=== PATIENT | female | born 1965 | race Caucasian/White ===

== ENCOUNTER 2017-03-11 09:11 | Outpatient (CLI) | payer MEDICAID ==
--- NOTE | 2017-03-11 10:17 | Ultrasound Report ---
LIMITED PELVIC ULTRASOUND: 03/11/2017 CLINICAL INDICATION: Painful palpable abnormality left lower quadrant, question hernia. TECHNIQUE: Real-time scanning was performed with b2b outside sales representative static images obtained. FINDINGS: Ultrasound of the painful palpable abnormality identified by the patient was performed. I n the left lower quadrant, there is no evidence of abdominal wall hernia. The painful palpable abnor mality identified by the patient correlates with a likely fundal leiomyoma, measuring approximately 1 0 x 8 x 7 cm. Consider formal pelvic ultrasound for further evaluation. No inguinal or femoral juliet ia is identified. IMPRESSION: THE PAINFUL PALPABLE ABNORMALITY IDENTIFIED BY THE PATIENT APPEARS TO CORRELATE WITH A F UNDAL LEIOMYOMA. NO HERNIA IS IDENTIFIED. IF CLINICALLY WARRANTED, CONSIDER FORMAL COMPLETE PELVIC ULTRASOUND WITH TRANSVAGINAL FOR FURTHER EVALUATION. JOB #: [id number] EXT JOB #:[id number]
== END 2017-03-11 09:12 | disposition home or self-care (01) ==
LOC: DI 09:11
PROVIDERS: ATTEND Nurse Practitioner Family
DX: D25.9 Leiomyoma of uterus, unspecified (principal)
CPT/HCPCS: 76857

== ENCOUNTER 2017-03-19 16:56 | Outpatient (CLI) | payer MEDICAID ==
--- NOTE | 2017-03-20 13:31 | Ultrasound Report ---
PELVIC ULTRASOUND: 03/19/2017 CLINICAL INDICATION: Leiomyoma. COMPARISON: Limited ultrasound of 03/11/2017. TECHNIQUE: Transabdominal pelvic ultrasound performed for global evaluation. Transvaginal pelvic ultr asound performed for detailed evaluation. Real-time scanning performed and static images obtained. FINDINGS: The uterus is anteverted, measuring 12.7 x 11.1 x 8.6 cm. The endometrial echo complex everardo sures 7 mm. There is a 7.1 x 6.9 x 6.3 cm left lateral leiomyoma present. The ovaries are unremarkabl e, with the right measuring 3.9 x 3.0 x 1.4 cm, and the left measuring 2.9 x 2.7 x 1.6 cm. No free fl uid is present. IMPRESSION: A 7.1 CM LEFT LATERAL INTRAMURAL LEIOMYOMA. JOB #: [id number] EXT JOB #:[id number]
== END 2017-03-19 16:57 | disposition home or self-care (01) ==
LOC: DI 16:56
PROVIDERS: ATTEND Nurse Practitioner Family
DX: D25.1 Intramural leiomyoma of uterus (principal)
CPT/HCPCS: 76830; 76856

== ENCOUNTER 2017-05-19 08:00 | Outpatient (CLI) | payer MEDICAID | END 2017-05-19 08:01 | disposition home or self-care (01) | LOC: LAB.R 08:00 | PROVIDERS: ATTEND Obstetrics & Gynecology | DX: N89.8 Other specified noninflammatory disorders of vagina (principal) | CPT/HCPCS: 87480; 87510; 87660 ==

== ENCOUNTER 2017-08-04 12:33 | Outpatient (CLI) | payer MEDICAID ==
[2017-08-04 18:53] LABS: FOLLICLE STIMULATING HORMONE 7.79 mIU/mL
[2017-08-04 18:54] LABS: LUTEINIZING HORMONE 6.22 mIU/mL
== END 2017-08-04 12:34 | disposition home or self-care (01) ==
LOC: LAB.F 12:33
PROVIDERS: ATTEND Obstetrics & Gynecology
DX: N95.0 Postmenopausal bleeding (principal)
CPT/HCPCS: 36415; 83001; 83002

== ENCOUNTER 2017-10-09 10:48 | Outpatient (CLI) | payer MEDICAID | END 2017-10-09 10:49 | disposition home or self-care (01) | LOC: LAB.F 10:48 | PROVIDERS: ATTEND Nurse Practitioner Family | DX: N93.8 Other specified abnormal uterine and vaginal bleeding (principal) | CPT/HCPCS: 36415; 82670; 83001 ==

== ENCOUNTER 2019-11-26 10:07 | Outpatient (CLI) | payer MEDICAID ==
[2019-11-26 10:24] LABS: BASOPHILS % (AUTO) 0.2 %; EOSINOPHILS # (AUTO) 0.1 10^3/uL (0.0-0.7); HGB - HEMOGLOBIN 13.6 g/dL (12.0-16.0); LYMPHOCYTES # (AUTO) 2.1 10^3/uL (1.5-3.5); LYMPHOCYTES % (AUTO) 43.1 %; MEAN CORPUSCULAR HEMOGLOBIN 29.4 pg (27.0-31.0); MEAN CORPUSCULAR HGB CONC 32.5 g/dL (32.0-36.0); MEAN CORPUSCULAR VOLUME 90.3 fL (81.0-99.0); MEAN PLATELET VOLUME 10.3 fL (7.9-10.8); MONOCYTES # (AUTO) 0.5 10^3/uL (0.0-1.0); MONOCYTES % (AUTO) 9.1 %; NEUTROPHILS # (AUTO) 2.2 10^3/uL (1.5-6.6); NEUTROPHILS % (AUTO) 45.4 %; PLT - PLATELET COUNT 244 10^3/uL (130-450); RED BLOOD COUNT 4.63 10^6/uL (4.20-5.40); RED CELL DISTRIBUTION WIDTH 14.1 % (12.0-15.0); WHITE BLOOD COUNT 4.9 x10^3/uL (4.8-10.8)
[2019-11-26 10:38] LABS: ALBUMIN 4.3 g/dL (3.2-5.5); ALBUMIN/GLOBULIN RATIO 1.3 (1.0-2.2); ALKALINE PHOSPHATASE 42 IU/L (42-121); ALT ALANINE AMINOTRANSFERASE 25 IU/L (10-60); AST ASPARTATE AMINOTRANSFERASE 21 IU/L (10-42); BILIRUBIN,TOTAL 1.1 mg/dL (0.2-1.0); BUN - BLOOD UREA NITROGEN 16 mg/dL (6-20); CALCIUM 9.5 mg/dL (8.5-10.3); CARBON DIOXIDE - CO2 29 mmol/L (21-32); CHLORIDE 104 mmol/L (101-111); CHOLESTEROL 225 mg/dL; CREATININE 0.7 mg/dL (0.4-1.0); GFR - MDRD 87 (>89); GLUCOSE 105 mg/dL (70-100); HDL CHOLESTEROL 115 mg/dL; LDL CHOLESTEROL,CALCULATED 93 mg/dL; LDL/HDL RATIO 0.8 (<4.4); SODIUM 141 mmol/L (135-145); TOTAL PROTEIN 7.7 g/dL (6.7-8.2); VLDL CHOLESTEROL 17 mg/dL
== END 2019-11-26 10:08 | disposition home or self-care (01) ==
LOC: LAB 10:07
PROVIDERS: ATTEND Registered Nurse
DX: G43.B0 Ophthalmoplegic migraine, not intractable (principal); R07.89 Other chest pain
CPT/HCPCS: 36415; 80053; 80061; 83721; 84443; 84484; 85025